=== PATIENT | female | born 2005 | race Two or more races ===

== ENCOUNTER 2025-03-07 15:08 | Emergency (ER) | payer OTHER, SELFPAY ==
[2025-03-07 15:09] VITALS: BMI 18.8
[2025-03-07 15:40] VITALS: BP 132/78; PULSE 60; RESP 20; TEMP 37.2; O2SAT 99
--- NOTE | 2025-03-07 15:44 | XR_ITS ---
Examination: PA lateral chest 2 views Technique: Upright PA lateral chest 2 views Exam date and time: March 07, 2025 1629 hrs. Indications: Shortness of breath today Findings: Mild prominence left ventricle Lungs are clear. Osseous structures are intact Impression: No active disease
--- NOTE | 2025-03-07 15:44 | EKG_ITS ---
[facility] Test Date: 2025-03-07 Pat Name: MONIQUE UNDERWOOD Department: Room: - Gender: Female Supervisor Treating And Pumping: : 2005 Requested By: Ag Benavides (CHANCE) Order Number: [id number] Reading MD: Ag Benavides (CHEMISTRY TECHNOLOGIST) Measurements Intervals [place] Rate: 60 P: 79 MT: 130 QRS: 78 QRSD: 98 T: 56 QT: 405 QTc: 406 Interpretive Statements SINUS RHYTHM POSSIBLE RIGHT ATRIAL ENLARGEMENT [0.25mV P-WAVE] LEFT VENTRICULAR HYPERTROPHY AND ST-T CHANGE [VOLTAGE CRITERIA PLUS ST/T ABNORMALITY] No previous ECG available for comparison /[id number]
--- NOTE | 2025-03-07 15:44 | PD.EDRME ---
Rapid Medical Screening Exam RME Arrival date/time: 03/07/25 15:08 19-year-old female presents to the emergency department complaint of generalized weakness felt like she is going to pass out Chief Complaint: Shortness of Breath/Dyspnea Time Seen by Provider: 03/07/25 15:11 Vital signs: Vital Signs Temperature 98.9 F 03/07/25 15:40 Pulse Rate 60 03/07/25 15:40 Respiratory Rate 20 03/07/25 15:40 Blood Pressure 132/78 H 03/07/25 15:40 Pulse Oximetry (%) 99 03/07/25 15:40 Oxygen Delivery Method Room Air 03/07/25 15:40
[2025-03-07 16:21] LABS: Basophils # (Auto) 0.1 Thou/mm3 (0.0-0.2); Basophils % (Auto) 1 % (0-2.5); Eosinophils # (Auto) 0.9 Thou/mm3 (0.0-0.5); Eosinophils % (Auto) 15 % (0-10); Hematocrit 36.3 % (36.0-46.0); Hemoglobin 12.5 g/dL (12.0-16.0); Immature Granulocytes % (Auto) 0 % (0-0); Immature Granulocytes Auto 0.01 Thou/mm3 (0.00-0.00); Lymphocytes # (Auto) 2.1 Thou/mm3 (1.0-4.8); Lymphocytes % (Auto) 37 % (10-50); Mean Corpuscular HGB Conc 34.4 g/dl (31.0-37.0); Mean Corpuscular Volume 87 fL (80-100); Monocytes # (Auto) 0.2 Thou/mm3 (0.0-0.8); Monocytes % (Auto) 4 % (0-12); Neutrophils # (Auto) 2.4 Thou/mm3 (1.8-7.7); Neutrophils % (Auto) 43 % (37-80); Nucleated Red Blood Cell % 0 /100 WBC (0); Platelet Count 238 Thou/mm3 (140-440); RDW Standard Deviation 39.8 fL (36.4-46.3); Red Blood Count 4.16 Miln/mm3 (4.00-5.20); White Blood Count 5.6 Thou/mm3 (3.6-11.0)
[2025-03-07 16:38] LABS: D-Dimer < 250 ng/mL (<600)
[2025-03-07 16:45] LABS: Alanine Aminotransferase 13 U/L (10-49); Albumin, Serum 4.6 gm/dL (3.5-5.0); Albumin/Globulin Ratio 1.7 (1.2-2.2); Alkaline Phosphatase 71 U/L (46-116); Anion Gap 6 (7-16); Aspartate Amino Transferase 22 U/L (0-34); BUN/Creatinine Ratio 14 Ratio (12-20); Bilirubin,Total 0.4 mg/dL (0.3-1.2); Blood Urea Nitrogen 11 mg/dL (9-23); Calcium 9.8 mg/dL (8.3-10.6); Calcium (Corrected) 9.8 mg/dL (8.5-10.1); Chloride 104 mMol/L (98-107); Creatinine (Component) 0.8 mg/dL (0.6-1.3); Estimated Creatinine Clearance 87.6 mL/min (>60); Globulin 2.7 gm/dL (2.3-3.5); Glucose 97 mg/dL (74-106); Osmolality,Calculated 276 (275-295); Potassium 4.1 mMol/L (3.4-5.1); Sodium 139 mMol/L (136-145); Total Protein 7.3 gm/dL (5.7-8.2); Troponin I 0.025 ng/mL (0.0-0.045); eGFR > 60 See Note
[2025-03-07 17:47] LABS: HCG Qualitative,Urine Negative
[2025-03-07 18:44] LABS: Amphetamine/Methamp Scrn,U Negative (Negative); Barbiturate Screen,Urine Negative (Negative); Benzodiazepines Screen,Urine Negative (Negative); Benzoylecgonine Screen, Ur Negative (Negative); Fentanyl Screen,Urine Negative (Negative); Opiate Screen,Urine Negative (Negative); THC Screen,Urine Negative (Negative)
--- NOTE | 2025-03-07 19:07 | EDNOTE_ITS ---
ED General RME/HPI General Chief complaint: Shortness of Breath/Dyspnea Stated complaint: FEELS FAINT, SOB X 1 WEEK, NAUSEA Time Seen by Provider: 03/07/25 15:11 Arrival date/time: 03/07/25 15:08 CC: Lightheaded dizziness HPI ongoing for the past 2 days. Patient denies fever chills shortness of breath or difficulty breathing states that she feels off balance . Patient is 2 months late with her menstrual cycle. 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 Gerri bush has no prior history of similar events up until approximately 2 weeks ago then it has been intermittent since. Patient denies full syncope striking head altered mentation or double vision. RME / HPI RME / HPI narrative: 03/07/25 15:08 19-year-old female presents to the emergency department complaint of generalized weakness felt like she is going to pass out Related Data Previous Rx's ?Medication ?Instructions ?Recorded ondansetron 4 mg disintegrating 4 mg PO Q8H PRN nausea and 03/11/22 tablet vomiting #20 tabs Allergies Allergy/AdvReac Type Severity Reaction Status Date / Time No Known Allergies Allergy Verified 03/07/25 15:11 Review of Systems Review of Systems Systems Reviewed: All systems reviewed, normal except as documented Past Medical History Past Medical History NEUROLOGIC: Positive Neurological Disorders (Chiari Malformation) CARDIAC: Negative Congestive Heart Failure RESPIRATORY: Negative Chronic Obstructive Pulmonary Disease (COPD) GENITOURINARY: Negative Renal Disease ENDOCRINE: Negative Diabetes Mellitus Type 1 or Diabetes Mellitus Type 2 Surgical History SURGICAL: Positive Neurologic Surgery (Chiari Malformation) Social History SMOKING STATUS: Never smoker SUBSTANCE USE: does not use ED Exam Narrative Physical exam: [General: Not in any acute distress Head normocephalic HEENT: Within acceptable limits Neck is supple nontender Chest equal chest rise nontender to palpation Respiratory: Clear to auscultation no wheezes crackles or rubs CV: Rate rhythm is regular no murmurs rubs or clicks Abdomen is soft nontender no masses positive bowel sounds all 4 quadrants Back: No CVA tenderness no spinous process tenderness from cervical spine thoracic and lumbar spine Skin: Intact no petechiae rash induration ulceration or crepitus Extremities: Moving all extremity against resistance cap refill less than 2 seconds neurosensory intact Neuro: Awake alert oriented x3 Glascow coma 15 no focal deficits] Course Quality Measures none Orders Category Date Time Status EKG (ED ONLY) *Do not use* NOW Care 03/07/25 15:44 Completed EKG (ED Only) Stat Exams 03/07/25 15:44 Draft XR chest 2V Stat Exams 03/07/25 15:44 Completed CBC Stat Lab 03/07/25 16:05 Completed Comprehensive Metabolic Panel Stat Lab 03/07/25 16:05 Completed D-Dimer Stat Lab 03/07/25 16:05 Completed Drug Screen,Urine Stat Lab 03/07/25 16:50 Completed HCG Qualitative,Urine Stat Lab 03/07/25 16:50 Completed Troponin I Stat Lab 03/07/25 16:05 Completed Meclizine HCl [Antivert] Med 03/07/25 19:07 Once 25 mg PO X1 ONE Vital Signs Vital signs: Vital Signs Temperature 98.9 F 03/07/25 15:40 Pulse Rate 60 03/07/25 15:40 Respiratory Rate 20 03/07/25 15:40 Blood Pressure 132/78 H 03/07/25 15:40 Pulse Oximetry (%) 99 03/07/25 15:40 Oxygen Delivery Method Room Air 03/07/25 15:40 Discharge Plan Plan Patient Disposition: HOME (Self Care) Patient condition on transfer: Stable Prescriptions/Referrals Prescriptions/Med Rec: No Action ondansetron 4 mg tablet,disintegrating 4 mg PO Q8H PRN (Reason: nausea and vomiting) Qty: 20 0RF Referrals: Robert Zavala MD [Primary Care Provider] - In 1 week Problem List Clinical Impression: Vertigo Patient/Caregiver Discharge Instructions Education Materials: ED Dizziness, Uncertain Cause Additional Instructions: Take the medication as prescribed to see if that helps, if it does not stop it immediately follow-up with your primary care provider if there is a worsening of the symptoms return to the emergency room for further evaluation. Rest, drink plenty of fluids. Print Language: Grenadian Stand Alone Forms: Inez Award Info., Work/School Release, Patient Portal Info Letter PA/PARTITION MAKING MACHINE OPERATOR Supervising Physician PA/PARTITION MAKING MACHINE OPERATOR Supervising Physician: Ajit Negrete ENP MDM Patient Acuity Low Acuity (complete MDM as needed) Clinical Information Provided by: patient Medical Records reviewed [facility] Meds/Rx considered, not ordered None Labs/Rad/Tests considered, not ordered None Chronic Illness/Social Conditions which may negatively complicate care or outcome(s)-explain: None or not applicable EKG EKG not done EKG Interpretation(s): EKG performed at 1549 shows a ventricular rate of 60 CT interval 130 QRS of 98 QTc of 405 sinus rhythm. Labs Labs: Interpreted by me Lab(s) Interpretation(s): CBC shows no acute leukocytosis anemia thrombocytopenia CMP no acute electrolyte imbalances renal impairment transaminitis or T. bili elevation hCG is negative UDS is negative Medication Administration(s) Patient is no acute finding requires emergent or immediate intervention however has a lightheaded and dizziness. The patient states that she has it repeatedly when she sits up or stands up however during the assessment, but the patient stood up heart rate adjusted only by 5 bpm. I am no acute finding. The patient is afebrile nontoxic-appearing not in any acute distress at this time we will give her a small amount of meclizine to see if this works and discharge her home patient is to follow-up with a primary care provider.
[2025-03-07 19:12] VITALS: BP 124/77; PULSE 56; RESP 16; O2SAT 100
== END 2025-03-07 19:23 | disposition home or self-care (01) ==
PROVIDERS: Nurse Practitioner Primary Care; Emergency Provider Emergency Medicine; PCP Family Medicine
DX: R42 Dizziness and giddiness (principal)
CPT/HCPCS: 36415; 71046; 80053; 80307; 81025; 84484; 85025; 85379; 93005; 99283; A9270

== ENCOUNTER → 2025-04-07 | Outpatient (CLI) | payer BC, SELFPAY ==
[2025-04-07 16:10] LABS: Collection Type, Urine Clean Catch
[2025-04-07 16:55] LABS: Bacteria,Urine Rare; Bilirubin,Urine Negative (Negative); Blood,Urine Negative (Negative); Clarity,Urine Clear (Clear/Hazy); Color,Urine Colorless (Lt Yel-Yel); Culture Indicated,Urine Not Indicated; Glucose, Urine Negative (Negative); Ketones,Urine Negative (Negative); Leukocyte Esterase,Urine Negative (Negative); Nitrite,Urine Negative (Negative); Protein,Urine Negative (Neg - Trace); RBC,Urine < 1 /hpf (0-3); Specific Gravity,Urine 1.008 (1.001-1.035); Squamous Epithelial Cell,Urine 1 /hpf (0-5); Urobilinogen,Urine Negative mg/dL (0.0-1.0); WBC,Urine 1 /hpf (0-5)
[2025-04-07 17:36] LABS: Syphilis Nonreactive (Nonreactive)
[2025-04-07 18:17] LABS: Hepatitis B Core Antibody IgM Non Reactive (Non React); Hepatitis B Surface Antigen Non Reactive (Non React); Hepatitis C Antibody Non Reactive (Non React)
[2025-04-08 09:41] LABS: Chlamydia trachomatis PCR Negative (Not Detect); Neisseria Gonorrhoeae DNA PCR Negative (Not Detect); Trichomonas Negative (Negative)
[2025-04-08 13:59] LABS: HIV (1&2) Antibody Rapid Non-Reactive
[2025-04-08 14:24] LABS: Mono Screen Negative (Negative)
[2025-04-13 07:02] LABS: Hepatitis B Core Ab,Total* NONREACTIVE
== END | disposition home or self-care (01) ==
PROVIDERS: PCP Family Medicine; Referring Provider Registered Nurse; Visit Provider Registered Nurse
DX: R35.0 Frequency of micturition (principal); R53.82 Chronic fatigue, unspecified; Z11.3 Encounter for screening for infections with a predominantly sexual mode of transmission
CPT/HCPCS: 36415; 81001; 86308; 86703; 86704; 86705; 86780; 86803; 87340; 87491; 87591; 87661

== ENCOUNTER 2025-06-10 20:50 | Emergency (ER) | payer BC, SELFPAY ==
[2025-06-10 20:52] VITALS: BP 135/83; PULSE 64; RESP 18; TEMP 36.7; O2SAT 100
--- NOTE | 2025-06-10 21:06 | PD.EDSYNC ---
ED Syncope RME/HPI General Chief Complaint: Syncope / Near Syncope Stated Complaint: NEAR SYNCOPE Time Seen by Provider: 06/10/25 21:07 Arrival date/time: 06/10/25 20:50 RME / HPI RME / HPI narrative: Dr. Haider?s Main ED Evaluation: 20yo female with no significant past medical history presents to the ED for a chief complaint of near syncope. Patient states she was sitting on her bed when everything went black and developed full body numbness, feeling like she was going to faint. Patient has been having these episodes intermittently for the last 7 months and does not know why. Patient denies any N/V/D, fever, chills, chest pain, abdominal pain, decreased appetite, or any other associated symptoms. She is not on any medications. Related Data Previous Rx's ?Medication ?Instructions ?Recorded ondansetron 4 mg disintegrating 4 mg PO Q8H PRN nausea and 03/11/22 tablet vomiting #20 tabs Allergies Allergy/AdvReac Type Severity Reaction Status Date / Time No Known Allergies Allergy Verified 03/07/25 15:11 Review of Systems Review of Systems Systems Reviewed: All systems reviewed, normal except as documented ED Exam Narrative Physical exam: Generally the patient is in no obvious distress. Heart regular rate and rhythm without rubs or gallops. No ectopy. Lungs auscultation equal bilaterally abdomen soft bowel sounds present nontender skin is warm pink and dry extremities show no peripheral edema. Neurologic exam no focal motor or sensory deficits. Course Quality Measures none Orders Category Date Time Status EKG (ED ONLY) *Do not use* NOW Care 06/10/25 21:09 Completed EKG (ED Only) Stat Exams 06/10/25 21:09 Ordered XR chest 1V portable Stat Exams 06/10/25 21:09 Completed CBC Stat Lab 06/10/25 21:28 Completed CMP [Comprehensive Metabolic Panel] Stat Lab 06/10/25 21:28 Completed HCG,Qualitative Serum Stat Lab 06/10/25 21:28 Completed Vital Signs Vital signs: Vital Signs Temperature 98.1 F 06/10/25 20:52 Pulse Rate 64 06/10/25 20:52 Respiratory Rate 18 06/10/25 20:52 Blood Pressure 135/83 H 06/10/25 20:52 Pulse Oximetry (%) 100 06/10/25 20:52 Oxygen Delivery Method Room Air 06/10/25 20:52 Syncope MDM Narrative MDM Narrative:: Scribe Attestation: 06/10/25 - Mary Donis am scribing for and in the presence of Dr. Haider. Interpreted all labs. Patient was kept on continuous cardiac monitoring without incident. EKG obtained at 9:24 PM shows normal sinus rhythm at a rate of 68 with a slight sinus arrhythmia. No ischemic changes. Patient remained in stable condition throughout the entirety of her stay. I long discussion with the patient and her mother about the near syncope and syncopal episodes. Patient is already seen a nursing coordinator and neurologist without a diagnosis being made. According to the patient she did not fully pass out tonight. She felt as if she was going to pass out. Patient data External records reviewed:: [facility] previous records (Per chart review, patient was seen here on 03/07/25 for vertigo.) and EMS form Clinical information provided by:: patient Social determinants that could affect healthcare access:: none Patient has the following chronic illnesses:: none How is presenting disease/condition affected by chronic disease/condition?: no chronic disease Evaluation data The following diagnostics were reviewed and interpreted by me:: lab results and EKG tracing(s) Lab and/or radiology exams considered but not ordered:: none Interpretation Summary: See MDM. Medications / Prescriptions Medications or Prescriptions considered but not ordered:: none Medication administrations:: none Consultations Consultation(s) initiated? (list below): No Diagnosis Syncope Differential Diagnosis: dehydration and other (near syncope, electrolyte abnormality) Most likely diagnosis given after review of the tests above:: see clinical impression below Admission Indicated Admission indicated?: not indicated Admission Request Was there a request for admission?: No Disposition Plan Disposition Plan: Discharge Discharge Attestation Discharge Attestation: The patient and all family members were given an opportunity to ask questions and understood the discharge instructions. Discharge instructions specifically effects, indications for sooner follow up or return to the emergency department, and the expected course of current diagnosis. Patient condition: Stable Discharge Plan Plan Patient Disposition: HOME (Self Care) Prescriptions/Referrals Prescriptions/Med Rec: No Action ondansetron 4 mg tablet,disintegrating 4 mg PO Q8H PRN (Reason: nausea and vomiting) Qty: 20 0RF Referrals: Oliva Zavala MD [Primary Care Provider] - In 1 week Problem List Clinical Impression: Near syncope Patient/Caregiver Discharge Instructions Additional Instructions: Keep well-hydrated and eat regular meals. You may think about getting a second opinion from a nursing coordinator. Print Language: Maori Stand Alone Forms: Inez Award Info., Patient Portal Info Letter
--- NOTE | 2025-06-10 21:09 | XR_ITS ---
Examination: AP chest single view Regarding one AP portable upright chest single view Date and time: June 10, 20258 hours INDICATIONS: Chest pain shortness of breath today. FINDINGS: Normal heart size Lungs are clear. The osseous structures are intact IMPRESSION: No active disease
[2025-06-10 21:13] VITALS: PULSE 85; RESP 14; O2SAT 99; BMI 18.8
[2025-06-10 21:28] VITALS: BP 139/80; PULSE 70; RESP 14; TEMP 37; O2SAT 99
[2025-06-10 21:37] LABS: Basophils # (Auto) 0.1 Thou/mm3 (0.0-0.2); Basophils % (Auto) 1 % (0-2.5); Eosinophils # (Auto) 0.3 Thou/mm3 (0.0-0.5); Eosinophils % (Auto) 5 % (0-10); Hematocrit 38.8 % (36.0-46.0); Hemoglobin 13.3 g/dL (12.0-16.0); Immature Granulocytes Auto 0.01 Thou/mm3 (0.00-0.00); Lymphocytes # (Auto) 1.7 Thou/mm3 (1.0-4.8); Lymphocytes % (Auto) 29 % (10-50); Mean Corpuscular HGB Conc 34.3 g/dl (31.0-37.0); Mean Corpuscular Hemoglobin 29.9 pg (25.0-35.0); Mean Corpuscular Volume 87 fL (80-100); Monocytes # (Auto) 0.3 Thou/mm3 (0.0-0.8); Monocytes % (Auto) 5 % (0-12); Neutrophils # (Auto) 3.5 Thou/mm3 (1.8-7.7); Neutrophils % (Auto) 60 % (37-80); Nucleated Red Blood Cell # 0.00 Thou/mm3 (0.00-0.00); Nucleated Red Blood Cell % 0 /100 WBC (0); Platelet Count 196 Thou/mm3 (140-440); RDW Standard Deviation 39.6 fL (36.4-46.3); Red Blood Count 4.45 Miln/mm3 (4.00-5.20); White Blood Count 5.8 Thou/mm3 (3.6-11.0)
[2025-06-10 21:56] LABS: Alanine Aminotransferase 9 U/L (10-49); Albumin, Serum 4.9 gm/dL (3.5-5.0); Albumin/Globulin Ratio 2.0 (1.2-2.2); Alkaline Phosphatase 72 U/L (46-116); Anion Gap 7 (7-16); Aspartate Amino Transferase 21 U/L (0-34); BUN/Creatinine Ratio 10 Ratio (12-20); Bilirubin,Total 0.5 mg/dL (0.3-1.2); Blood Urea Nitrogen 8 mg/dL (9-23); Calcium 10.2 mg/dL (8.3-10.6); Calcium (Corrected) 10.2 mg/dL (8.5-10.1); Carbon Dioxide 28.6 mMol/L (20.0-31.0); Chloride 103 mMol/L (98-107); Creatinine (Component) 0.8 mg/dL (0.6-1.3); Estimated Creatinine Clearance 86.9 mL/min (>60); Globulin 2.5 gm/dL (2.3-3.5); Glucose 93 mg/dL (74-106); Osmolality,Calculated 275 (275-295); Potassium 4.0 mMol/L (3.4-5.1); Sodium 139 mMol/L (136-145); Total Protein 7.4 gm/dL (5.7-8.2); eGFR > 60 See Note
[2025-06-10 22:13] LABS: HCG,Qualitative Serum Negative
[2025-06-10 23:23] VITALS: BP 130/85; PULSE 80; RESP 14; TEMP 37; O2SAT 99
== END 2025-06-10 23:24 | disposition home or self-care (01) ==
PROVIDERS: Emergency Provider Emergency Medicine; PCP Family Medicine
DX: R55 Syncope and collapse (principal); R07.9 Chest pain, unspecified; R06.02 Shortness of breath; I49.8 Other specified cardiac arrhythmias
CPT/HCPCS: 36415; 71045; 80053; 84703; 85025; 93005; 99283

== ENCOUNTER → 2025-07-09 | Outpatient (CLI) | payer OTHER, SELFPAY ==
[2025-07-09 17:07] LABS: Collection Type, Urine Clean Catch; RBC,Urine 0 /hpf (0-3); WBC,Urine 0 /hpf (0-5)
[2025-07-09 17:25] LABS: Syphilis Nonreactive (Nonreactive)
[2025-07-09 17:33] LABS: Bilirubin,Urine Negative (Negative); Blood,Urine Negative (Negative); Clarity,Urine Clear (Clear/Hazy); Color,Urine Colorless (Lt Yel-Yel); Culture Indicated,Urine Not Indicated; Glucose, Urine Negative (Negative); Ketones,Urine Negative (Negative); Leukocyte Esterase,Urine Negative (Negative); Nitrite,Urine Negative (Negative); PH,Urine 7.5 (5.0-7.0); Protein,Urine Negative (Neg - Trace); Specific Gravity,Urine 1.004 (1.001-1.035); Squamous Epithelial Cell,Urine < 1 /hpf (0-5); Urobilinogen,Urine Negative mg/dL (0.0-1.0)
[2025-07-09 19:17] LABS: HIV (1&2) Antibody Rapid Non-Reactive
[2025-07-10 07:56] LABS: Chlamydia trachomatis PCR Negative (Not Detect); Neisseria Gonorrhoeae DNA PCR Negative (Not Detect); Trichomonas Negative (Negative)
== END | disposition home or self-care (01) ==
LOC: COPL 15:32
PROVIDERS: PCP Physician Assistant; Referring Provider Physician Assistant; Visit Provider Physician Assistant
DX: G47.00 Insomnia, unspecified (principal); F34.1 Dysthymic disorder; M25.50 Pain in unspecified joint; Z20.2 Contact with and (suspected) exposure to infections with a predominantly sexual mode of transmission
CPT/HCPCS: 36415; 80053; 80061; 80074; 81001; 82306; 82607; 82728; 83540; 84443; 85025; 86146; 86147; 86200; 86235; 86376; 86618; 86695; 86696; 86703; 86780; 86800; 87491; 87591; 87661